=== PATIENT | female | born 1995 | race Caucasian/White ===

== ENCOUNTER 2016-08-05 19:16 | Emergency (ER) | payer BC ==
[~2016-08-05] VITALS: Ht 160 cm; Wt 63.6 kg
[2016-08-05 19:18] VITALS: BP 131/75; TEMP 98.5
[2016-08-05] MEDS ORDERED: ALDACTONE50 MG PO (19:21)
[2016-08-05] MEDS ORDERED: PROAIR HFA0.09 MG/AC IH (19:21)
[2016-08-05] MEDS ORDERED: MULTIPLE VITAMI1 CAP PO (19:22)
[2016-08-05] MEDS ORDERED: RITALIN 5MG5 MG/TAB PO (19:22)
[2016-08-05 20:19] VITALS: PULSE 82
== END 2016-08-05 20:24 | disposition home or self-care (01) ==
LOC: COL.ER 19:16
DX: S61.211A Laceration without foreign body of left index finger without damage to nail, initial encounter (principal); W26.0XXA Contact with knife, initial encounter; Y92.214 College as the place of occurrence of the external cause; F90.9 Attention-deficit hyperactivity disorder, unspecified type; J45.909 Unspecified asthma, uncomplicated

== ENCOUNTER 2016-08-15 19:36 | Emergency (ER) | payer BC ==
[~2016-08-15 19:36] MED LIST: ALDACTONE50 MG PO; MULTIPLE VITAMI1 CAP PO; PROAIR HFA0.09 MG/AC IH; RITALIN 5MG5 MG/TAB PO
[2016-08-15 19:41] VITALS: BP 131/66; PULSE 78; TEMP 98.9
== END 2016-08-15 20:01 | disposition home or self-care (01) ==
LOC: COL.ER 19:36
DX: Z48.02 Encounter for removal of sutures (principal)